=== PATIENT | female | born 2000 | race African-American/Black ===

== ENCOUNTER 2020-04-26 16:21 | Emergency (ER) | payer OTHER, SELFPAY ==
--- NOTE | 2020-04-26 16:40 | ED_ITS ---
[facility] [place] Disposition Clinical Impression: Exposure to COVID-19 virus Diarrhea Qualifiers: Diarrhea type: unspecified type Qualified Code(s): R19.7 - Diarrhea, unspecified Disposition: Home, Self-Care Condition on Discharge: Good Instructions: Preventing the Spread of Coronavirus Discharge Instructions Referrals: Ronald Mcdowell [Primary Care Provider] - Time of Disposition: 16:50 Medical Decision Making - [place] Inquiry Pt receiving controlled substance: No Orders (Tests/Meds): ORDERS Category Date Time Status Coronavirus 19 Swab (OUTPT) Routine Lab 04/26/20 16:35 Received [facility] [place] HPI - General Stated complaint: Covid test Time Seen by Provider: 04/26/20 16:40 - History of Present Illness Provider Complaint: Has had diarrhea for about a week. Vomited once. No fever. 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 Denies ear pain, sore throat, cough. Onset (ago): week(s) (1) Location: abdomen Relieving factors: none Exacerbating factors: none Associated symptoms: denies other symptoms Treatments prior to arrival: none [facility] History - Hepatitis A Screen Attestation statement:: This patient has been screened for Hepatitis A risk factors. I have reviewed the patient's past medical history: No ROS Obtained: Yes All systems reviewed & no additional complaints - Constitutional Constitutional: Denies fever(s) - Gastrointestinal Gastrointestingal: Reports: loose stools, vomiting Physical Exam - General General appearance: alert, in no apparent distress - Head Head exam: atraumatic, normocephalic, normal inspection - Eye Eye exam: Present: normal appearance, PERRL, EOMI - ENT ENT exam: Present: normal exam, normal oropharynx, mucous membranes moist, TM's normal bilaterally, normal external ear exam - Neck Neck exam: Present: normal inspection, full ROM, trachea midline. Absent: meningismus, lymphadenopathy - Chest Chest inspection: Present: normal inspection, symmetric chest wall rise. Absent: tenderness - Respiratory Respiratory exam: Present: normal lung sounds bilaterally. Absent: respiratory distress - Cardiovascular Cardiovascular exam: Present: regular rate, normal rhythm. Absent: JVD - Abdominal Exam Abdominal exam: Present: soft, normal bowel sounds. Absent: distention, tenderness, guarding - Extremities Exam Extremities exam: Present: normal inspection, full ROM, normal capillary refill. Absent: calf tenderness - Back Exam Back exam: Present: normal inspection. Absent: tenderness - Neurological Exam Neurological exam: Present: alert, oriented X3 - Psychiatric Psychiatric exam: Present: normal affect, normal mood - Skin Skin exam: Present: warm, dry, intact, normal color - Lymphatic Lymphatic Findings: no adenopathy
[2020-04-26 16:44] VITALS: BP 144/90; PULSE 91; RESP 19; TEMP 36.7; O2SAT 99; BMI 40.3
[2020-04-26 16:57] VITALS: BP 144/90; PULSE 91; RESP 19; TEMP 36.7; O2SAT 99
--- NOTE | 2020-04-29 13:30 | PC.NURSE ---
per direction of dr. ryder contacted pt family care doctor; Ronald Mcdowell spoke with office staff who verified that he is a pt in their office. Requested their fax number to fax over results on pt. fax number [phone]
== END 2020-04-26 17:00 | disposition home or self-care (01) ==
PROVIDERS: Emergency Provider Physician Assistant; PCP Pediatrics
DX: Z20.828 Contact with and (suspected) exposure to other viral communicable diseases (principal); R19.7 Diarrhea, unspecified
CPT/HCPCS: 99201; U0003

== ENCOUNTER → 2020-04-28 19:11 | Outpatient (CLI) | payer OTHER, SELFPAY ==
[2020-04-28 19:23] LABS: Adenovirus F 40/41, stool Not Detected (NotDetected); Astrovirus Not Detected (NotDetected); Campylobacter Not Detected (NotDetected); Clostridium Difficile A/B, PCR Not Detected (NotDetected); Cryptosporidium Not Detected (NotDetected); Cyclospora Cayetanesis Not Detected (NotDetected); Entamoeba histolytica Not Detected (NotDetected); Enteroaggregative E coli Not Detected (NotDetected); Enterotoxigenic E coli Not Detected (NotDetected); Giardia lamblia Not Detected (NotDetected); Norovirus Not Detected (NotDetected); Plesimonas Shigalloides, PCR Not Detected (NotDetected); Rotavirus A Not Detected (NotDetected); Salmonella, PCR Not Detected (NotDetected); Sapovirus Not Detected (NotDetected); Shiga-like toxin E coli Not Detected (NotDetected); Shigella Enterovasive E coli Not Detected (NotDetected); Vibrio Cholerae Not Detected (NotDetected); Vibrio, PCR Not Detected (NotDetected); Yersinia Entercolitica, PCR Not Detected (NotDetected)
[2020-04-28 21:17] LABS: Enteropathogenic E coli Detected (NotDetected)
== END ==
PROVIDERS: PCP Physician Assistant; Visit Provider Physician Assistant
DX: R19.7 Diarrhea, unspecified (principal); E04.0 Nontoxic diffuse goiter
CPT/HCPCS: 87507